=== PATIENT | male | born 1980 | race Caucasian/White ===

== ENCOUNTER 2018-05-25 18:31 | Emergency (ER) | payer MEDICAID ==
[~2018-05-25] VITALS: Ht 177.8 cm; Wt 100.0 kg
[2018-05-25 18:34] VITALS: BP 149/86; PULSE 113; TEMP 98.1
[2018-05-25] MEDS ORDERED: AMOXICILLIN 50500 MG PO (19:03)
== END 2018-05-25 19:20 | disposition home or self-care (01) ==
LOC: COL.ER 18:31
DX: K04.7 Periapical abscess without sinus (principal); F17.210 Nicotine dependence, cigarettes, uncomplicated; Z79.891 Long term (current) use of opiate analgesic

== ENCOUNTER 2018-11-15 13:45 | Emergency (ER) | payer OTHER ==
[~2018-11-15] VITALS: Ht 177.8 cm; Wt 86.4 kg
[~2018-11-15 13:45] MED LIST: AMOXICILLIN 50500 MG PO
[2018-11-15 13:51] VITALS: BP 113/68; PULSE 101; TEMP 97.6
[2018-11-15] MEDS ORDERED: ROXICODONE 55 MG/TAB PO (15:03)
[2018-11-15] MEDS ORDERED: EFFEXOR-XR150 MG PO (15:04)
== END 2018-11-15 17:10 | disposition home or self-care (01) ==
LOC: COL.ER 13:45
DX: M62.838 Other muscle spasm (principal); F43.10 Post-traumatic stress disorder, unspecified; F17.210 Nicotine dependence, cigarettes, uncomplicated; V89.2XXA Person injured in unspecified motor-vehicle accident, traffic, initial encounter
CPT/HCPCS: J1885